=== PATIENT | female | born 1990 | race Caucasian/White ===

== ENCOUNTER → 2024-06-21 | Outpatient (CLI) | payer BC ==
--- NOTE | 2024-06-21 12:07 | CT ---
EXAMINATION TYPE: CT iac w con CT DLP: 150 mGycm, Automated exposure control for dose reduction was used. DATE OF EXAM: 06/21/2024 11:58 AM INDICATION: Patient age:Female; 34 years old; Reason for study: H93.A2 PULSATILE TINNITUS, LEFT EAR; PHH. COMPARISON: None. TECHNIQUE: Multiple thin axial images were obtained through the temporal bones and internal auditory canals after the uneventful administration of 100 cc of Isovue-300 intravenously. Additional coronal reformatted images were obtained. FINDINGS: Right Temporal Bone: External Ear: The external auditory canal is unremarkable, The tympanic membrane is present and unrem arkable. Middle Ear: The ossicles demonstrate a normal appearance. Prussak's space is clear and the scutum i s intact. There is no evidence of osseous erosion and the tegmen tympani is intact. Inner Ear: Cochlea, vestibule and semi circular canals are unremarkable. No evidence of carotid cami l dehiscence. Two and a half turns of the cochlea are identified. The vestibular aqueduct is not enl arged. Mastoid Air Cells: The mastoid air cells are clear. The tegmen mastoideum is intact. The aditus ad an trum is clear. Internal Auditory Canal: The internal auditory canal is unremarkable. Left Temporal Bone: External Ear: The external auditory canal is relatively unremarkable with trace cerumen, The tympanic membrane is present and unremarkable. Middle Ear: The ossicles demonstrate a normal appearance. Prussak's space is clear and the scutum i s intact. There is no evidence of osseous erosion and the tegmen tympani is intact. Inner Ear: Cochlea, vestibule and semi circular canals are unremarkable. No evidence of carotid cami l dehiscence. Two and a half turns of the cochlea are identified. The vestibular aqueduct is not enl arged. Mastoid Air Cells: The mastoid air cells are clear. The tegmen mastoideum is intact. The aditus ad an trum is clear. Internal Auditory Canal: The internal auditory canal is unremarkable. The visualized portions of the vertebral, basilar, posterior cerebral, anterior cerebral, and middle cerebral arteries are widely patent. The visualized portions of the internal carotid arteries are wid perla patent. IMPRESSION: Normal internal auditory canal study without abnormal contrast enhancement. [facility], , 06/21/2024 12:05 PM
== END | disposition home or self-care (01) ==
LOC: RADCTMAIN 11:30
PROVIDERS: ATTEND Otolaryngology
DX: H93.A2 Pulsatile tinnitus, left ear (principal); H93.12 Tinnitus, left ear
CPT/HCPCS: 70481; Q9967